=== PATIENT | female | born 1990 | race Two or more races ===

== ENCOUNTER 2024-11-20 09:25 | Emergency (ER) | payer OTHER ==
[~2024-11-20] VITALS: Ht 167.6 cm; Wt 65.8 kg
[2024-11-20 09:30] VITALS: BP 104/68; O2SAT 98
[2024-11-20] MEDS ORDERED: 0.9 % SODIUM CHLORIDE 1,000 ML IV SCH (10:00)
[2024-11-20 10:33] LABS: BASO % 0.3 % (0.1-1.2); EOS # 0.07 (0.04-0.54); EOS % 0.8 % (0.7-7.0); HEMATOCRIT 41.5 % (34.1-44.9); LYMPH # 1.19 (1.18-3.74); LYMPH % 13.3 % (19.3-53.1); MONO % 4.5 % (4.7-12.5); NEUT # 7.21 (1.56-6.13); NEUT % 80.7 % (34.0-71.1); PLATELET COUNT 303 K/uL (163-369); RED BLOOD COUNT 4.51 M/uL (3.93-5.22); RED CELL DISTRIBUTION WIDTH 12.9 % (11.6-14.4)
[2024-11-20 11:17] LABS: URINE APPEARANCE Clear; URINE BILIRRUBIN Negative (NEGATIVE); URINE BLOOD Negative; URINE COLOR Yellow; URINE GLUCOSE Negative (NEGATIVE); URINE KETONE Negative (NEGATIVE); URINE LEUKOCYTE Trace; URINE NITRATE Negative; URINE PROTEIN Negative (NEGATIVE)
[2024-11-20 11:22] LABS: URINE BACTERIA 6059.7 uL (0.0-1933); URINE EPITHELIAL CELLS 24.8 uL (0.0-38.8); URINE RBC 15.9 uL (0.0-20.8)
[2024-11-20 11:32] LABS: URINE CAST 0.58 uL (0.0-1.40)
== END 2024-11-20 15:19 | disposition home or self-care (01) ==
LOC: ER 10:34
PROVIDERS: Emergency Medicine
DX: Z34.90 Encounter for supervision of normal pregnancy, unspecified, unspecified trimester (principal); Z3A.01 Less than 8 weeks gestation of pregnancy; Z33.1 Pregnant state, incidental; R55 Syncope and collapse

== ENCOUNTER 2024-11-25 02:36 | Emergency (ER) | payer OTHER ==
[~2024-11-25] VITALS: Ht 167.6 cm; Wt 65.8 kg
[2024-11-25] MEDS ORDERED: OxyCODONE HCL 5 MG TABLET (ROXICODONE) PO STA (03:55)
[2024-11-25 11:46] LABS: BASO % 0.1 % (0.1-1.2); HEMATOCRIT 37.8 % (34.1-44.9); HEMOGLOBIN 12.9 g/dL (11.2-15.7); LYMPH # 0.86 (1.18-3.74); LYMPH % 5.4 % (19.3-53.1); MEAN CORPUSCULAR HEMOGLOBIN 30.7 pg (25.6-32.2); MONO # 0.44 (0.24-0.82); MONO % 2.8 % (4.7-12.5); NEUT # 14.47 (1.56-6.13); NEUT % 91.3 % (34.0-71.1); PLATELET COUNT 273 K/uL (163-369); RED CELL DISTRIBUTION WIDTH 12.7 % (11.6-14.4)
[2024-11-25 12:37] LABS: CREATININE SERUM 0.59 mg/dL (0.55-1.02); GFR 117.38; POTASSIUM 4.38 mEq/L (3.5-5.1)
[2024-11-25 12:46] LABS: PH,URINE 5.5 (5.0-8.0); URINE APPEARANCE Clear; URINE BILIRRUBIN Negative (NEGATIVE); URINE BLOOD Small; URINE COLOR Yellow; URINE GLUCOSE Negative (NEGATIVE); URINE KETONE Negative (NEGATIVE); URINE LEUKOCYTE Trace; URINE NITRATE Negative; URINE PROTEIN Negative (NEGATIVE); URINE UROBILINOGEN 0.2 E.U./dl
[2024-11-25 12:50] LABS: URINE BACTERIA 2040.2 uL (0.0-1933); URINE CAST 6.33 uL (0.0-1.40); URINE EPITHELIAL CELLS 36.8 uL (0.0-38.8); URINE WBC 50.3 uL (0.0-23.2)
[2024-11-25 13:07] LABS: URINE MUCUS MODERATE
== END 2024-11-25 15:35 | disposition home or self-care (01) ==
LOC: ER 02:36
PROVIDERS: General Practice
DX: Z34.90 Encounter for supervision of normal pregnancy, unspecified, unspecified trimester (principal); Z3A.12 12 weeks gestation of pregnancy; N39.0 Urinary tract infection, site not specified; M54.50 Low back pain, unspecified

== ENCOUNTER 2025-01-20 07:37 | Outpatient (CLI) | payer OTHER | END 2025-01-20 07:41 | disposition home or self-care (01) | LOC: PRENATAL 07:37 | PROVIDERS: ATTEND Obstetrics & Gynecology | DX: O44.00 Complete placenta previa NOS or without hemorrhage, unspecified trimester (principal); O28.3 Abnormal ultrasonic finding on antenatal screening of mother; Z3A.20 20 weeks gestation of pregnancy ==

== ENCOUNTER 2025-02-02 00:55 | Inpatient (IN) | payer OTHER ==
[~2025-02-02] VITALS: Ht 167.6 cm; Wt 70.3 kg
[2025-02-02] VITALS (7 sets, daily range): BP systolic 80–114; BP diastolic 50–75; O2SAT 97–100
[2025-02-02] MEDS ORDERED: PRENATABS RX T1 EACH PO (01:02)
[2025-02-02] MEDS ORDERED: RINGERS SOLUTION,LACTATED 1,000 ML IV SCH (01:15)
[2025-02-02 01:31] LABS: BASO % 0.2 % (0.1-1.2); EOS # 0.03 (0.04-0.54); EOS % 0.2 % (0.7-7.0); LYMPH # 0.99 (1.18-3.74); LYMPH % 6.1 % (19.3-53.1); MEAN PLATELET VOLUME 9.30 fl (9.4-12.4); MONO # 0.66 (0.24-0.82); MONO % 4.0 % (4.7-12.5); NEUT # 14.49 (1.56-6.13); NEUT % 88.6 % (34.0-71.1); RED CELL DISTRIBUTION WIDTH 13.2 % (11.6-14.4)
[2025-02-02 01:35] LABS: URINE APPEARANCE Clear; URINE BILIRRUBIN Negative (NEGATIVE); URINE BLOOD Negative; URINE COLOR Yellow; URINE GLUCOSE Negative (NEGATIVE); URINE LEUKOCYTE Trace; URINE NITRATE Negative; URINE PROTEIN Negative (NEGATIVE); URINE UROBILINOGEN 0.2 E.U./dl
[2025-02-02 01:39] LABS: URINE BACTERIA 3060.0 uL (0.0-1933); URINE EPITHELIAL CELLS 19.2 uL (0.0-38.8); URINE RBC 3.2 uL (0.0-20.8); URINE WBC 29.8 uL (0.0-23.2)
[2025-02-02 01:58] LABS: URINE CAST 0.87 uL (0.0-1.40); URINE KETONE 40 (NEGATIVE)
[2025-02-02] MEDS ORDERED: CEFAZOLIN SODIUM 1,000 MG VIAL IV SCH (06:00)
[2025-02-03] VITALS: BP 95/55
[2025-02-03 08:11] VITALS: BP 94/61
== END 2025-02-03 13:28 | disposition home or self-care (01) | DRG 833 ==
LOC: OBS/DEL 00:55 → LDR 08:05 → OBS/DEL 08:05 → OB/GYN 08:05
PROVIDERS: Obstetrics & Gynecology; ADMIT Obstetrics & Gynecology; ATTEND Obstetrics & Gynecology
PROC: 4A1HXCZ Monitoring of Products of Conception, Cardiac Rate, External Approach (ICD-10-PCS; principal; 2025-02-02)
DX: O23.42 Unspecified infection of urinary tract in pregnancy, second trimester (principal); O26.892 Other specified pregnancy related conditions, second trimester; K29.70 Gastritis, unspecified, without bleeding; Z3A.22 22 weeks gestation of pregnancy

== ENCOUNTER 2025-02-17 02:24 | Emergency (ER) | payer OTHER ==
[~2025-02-17] VITALS: Ht 167.6 cm; Wt 72.6 kg
[~2025-02-17 02:24] MED LIST: PRENATABS RX T1 EACH PO
[2025-02-17] MEDS ORDERED: ONDANSETRON HCL 2 MG/ML VIAL IV STA (03:59)
[2025-02-17] MEDS ORDERED: 0.9 % SODIUM CHLORIDE 1,000 ML IV STA (03:59)
[2025-02-17] MEDS ORDERED: FAMOtidine 10 MG/ML (4ML VIAL) IV PUSH STA (04:00)
[2025-02-17 04:45] LABS: BASO % 0.2 % (0.1-1.2); EOS # 0.05 (0.04-0.54); EOS % 0.3 % (0.7-7.0); LYMPH # 0.98 (1.18-3.74); LYMPH % 6.6 % (19.3-53.1); MEAN PLATELET VOLUME 9.00 fl (9.4-12.4); MONO # 0.54 (0.24-0.82); MONO % 3.6 % (4.7-12.5); NEUT # 13.06 (1.56-6.13); NEUT % 88.4 % (34.0-71.1); RED CELL DISTRIBUTION WIDTH 13.0 % (11.6-14.4)
[2025-02-17 05:12] LABS: URINE APPEARANCE Clear; URINE BILIRRUBIN Negative (NEGATIVE); URINE BLOOD Negative; URINE COLOR Yellow; URINE GLUCOSE Negative (NEGATIVE); URINE KETONE Negative (NEGATIVE); URINE LEUKOCYTE Trace; URINE NITRATE Negative; URINE PROTEIN Negative (NEGATIVE); URINE UROBILINOGEN 0.2 E.U./dl
[2025-02-17 05:16] LABS: URINE BACTERIA 2482.7 uL (0.0-1933); URINE CAST 3.22 uL (0.0-1.40); URINE EPITHELIAL CELLS 37.6 uL (0.0-38.8); URINE RBC 9.8 uL (0.0-20.8); URINE WBC 69.8 uL (0.0-23.2)
[2025-02-17 05:50] LABS: ALT/SGPT 36.0 U/L (12-78); AST/SGOT 19.0 U/L (15-37); BILIRUBIN TOTAL 0.48 mg/dL (0.3-1.2); BUN CREA RATIO 21.0 (7.0-25.0); CREATININE SERUM 0.47 mg/dL (0.55-1.02); GFR 152.61; GLOBULINA 3.1 G/DL (2.4-3.5); GLUCOSE FASTING 88.0 mg/dL (65-100); OSMOLALITY SERUM 278.0 MOSM/KG (275-295)
[2025-02-17 05:52] LABS: TYPE CELLS RENAL TUBULAR
[2025-02-17] MEDS ORDERED: CEFTRIAXONE SODIUM 2,000 MG VIAL IV STA (07:39)
== END 2025-02-17 11:47 | disposition home or self-care (01) ==
LOC: ER 02:24
DX: Z33.1 Pregnant state, incidental (principal); Z3A.22 22 weeks gestation of pregnancy; R30.0 Dysuria; R11.10 Vomiting, unspecified; M54.50 Low back pain, unspecified

== ENCOUNTER → 2025-02-27 14:05 | Outpatient (CLI) | payer OTHER | END | disposition home or self-care (01) | LOC: PRENATAL 14:05 | PROVIDERS: ATTEND Obstetrics & Gynecology Maternal & Fetal Medicine | DX: O26.849 Uterine size-date discrepancy, unspecified trimester (principal); O36.8120 Decreased fetal movements, second trimester, not applicable or unspecified; O28.3 Abnormal ultrasonic finding on antenatal screening of mother; Z3A.26 26 weeks gestation of pregnancy ==

== ENCOUNTER → 2025-03-27 10:17 | Outpatient (CLI) | payer OTHER | END | disposition home or self-care (01) | LOC: PRENATAL 10:17 | PROVIDERS: ATTEND Obstetrics & Gynecology Maternal & Fetal Medicine | DX: O26.849 Uterine size-date discrepancy, unspecified trimester (principal); O36.8130 Decreased fetal movements, third trimester, not applicable or unspecified; O28.3 Abnormal ultrasonic finding on antenatal screening of mother; Z3A.30 30 weeks gestation of pregnancy ==